=== PATIENT | female | born 1935 | race Caucasian/White ===

== ENCOUNTER 2016-06-14 18:55 | Inpatient (IN) | payer MEDICARE, OTHER ==
[~2016-06-14] VITALS: Ht 157.5 cm; Wt 75.0 kg
--- NOTE | ~2016-06-14 | CATH ---
Cardiac Diagnostic Report Demographics Patient Name ANA LAURA Wild Gender Female Date of 1935 Age 80 year(s) Patient Number [id number] Date of Study 06/15/2016 Visit Number [id number] Room Number [id number] [place] [id number] Ht 157.48 cm Wt 75 kg Referring Primary Physician Physician Fahad Martinez Secondary Physician Physician Albertina BRO Diagnostic [facility] Assisting Physician Physician Albertina BRO Interventional Physician Bottom Sprayer Physician Findings and Conclusions Diagnostic Findings and Conclusion Patient brought urgently to cardiac laboratory sample carrier post PCI earlier today. Patient developed chest pain 6-7 on pain scale, associated with sob, also with ST elevation in leads 1, aVL and rising troponin. Given her CKD and recent exposure to contrast on 2 seperate occasions (CT to rule out PE a day prior to admission and cardiac cath earlier today). Limited images obtained to evaluate Ramus stent. 2 vs CAD: Critical lesion in Ramus at origin and extendsinto the upper branch of Ramus, 95% stenosis, diffusely diseased. The RCA was not imaged again, but from cath done earlier today, it showed, critical ostial RCA lesion 99%, and it is a small non dominant RCA. Moderate stenosis in the proximal LAD about 50%. Diagnostic Recommendations Ramus stent is patent with no evidence of stent thrombosis. continue aggressive medical therapy. monitor closely for TRACY, hydrate as tolerated, repeat BMP in am. If pt does well overnight and creatinine is stable, will dc home in am. Procedure Description The patient was brought to the diagnostic cardiac catheterization-EP laboratory in the fasting, non-sedated state. Informed consent was obtained in the written and verbal form after the risks and benefits were explained. The patient had no further questions and agreed to proceed. The planned puncture-incision site(s) were shaved and prepped with ChloraPrep and draped in the usual sterile manner. Conscious sedation, supplemental oxygen, and pain control medications were delivered by a registered nurse under physician guidance. Surface ECG rhythm, blood pressure measurement, and pulse oximetry were monitored throughout the procedure. Arterial access. The access site was infiltrated with lidocaine. The vessel was entered with the Seldinger technique. A sheath was advanced into the vessel and used for catheter placement. Selective left coronary angiography. A catheter was advanced into the left coronary vessel ostium under Fluoroscopic guidance. Contrast was injected by hand. Images were obtained in multiple projections. Selective right coronary angiography. A catheter was advanced into the right coronary vessel ostium under fluoroscopic guidance. Contrast was injected by hand. Images were obtained in multiple projections. Arterial artery hemostasis was achieved. The patient was transferred to a regular nursing floor via cart accompanied by a nurse. The patient left the laboratory in stable condition. Diagnostic Cath Status: Emergency Procedure Procedure Type Diagnostic procedure:Angiography:, Coronary Angios Indications: Acute coronary syndrome. The procedure was explained in detail to the patient. Risks, complications and alternative treatments were reviewed. Written consent was obtained. Medications Reviewed with Patient prior to Procedure. Procedure Data Procedure Date Date: 06/15/2016Start: 05:58 PMEnd: 06:21 PM Entry Locations - Percutaneous access was performed through the Left Radial artery (Primary location). A 6 Fr sheath was inserted. Hemostasis was successfully obtained using Mechanical Compression. Devices Used - A6 Fr. EBU 3.5 Guide Catheterwas used for:Left coronary angiography. Contrast Material - Isovue 3705 ml Fluoroscopy Time: Diagnostic: 1:27 minutes. Total: 1:27 minutes. Fluoroscopy Dose: Diagnostic: 84 mGy. Total: 84 mGy. Estimated Blood Loss: 5 ml. Medical History Performed Procedures and Imaging Results - No ACC stress or imaging studies were performed. Allergies - No known allergies. Risk Factors The patient risk factors include:hypertension, insulin-treated diabetes mellitus, last creatinine: 1.2 mg/dl, creatinine clearance: 44.27 ml/min and dyslipidemia. Admission Data Admission Date: 06/15/2016 Admission Time: 06:30 AM Admit Source: Transfer acute care facility Insurance Payors: Medicare. Admission Medications + +------+------+ + + + + !Medication !Dosage!Times !Last !Last !Administered !Comments ! ! ! !Per !Delivery !Delivery ! ! ! ! ! !Day !Date !Time ! ! ! + +------+------+ + + + + !Aspirin ! ! ! ! !Yes ! ! !(any) ! ! ! ! ! ! ! + +------+------+ + + + + !Beta ! ! ! ! !Yes ! ! !Nathaniel ! ! ! ! ! ! ! !(any) ! ! ! ! ! ! ! + +------+------+ + + + + !Statin ! ! ! ! !Yes ! ! !(any) ! ! ! ! ! ! ! + +------+------+ + + + + Clinical Evaluation Leading to Procedure - The patient's CAD presentation was assessed as: Non-STEMI.The symptom onset was first noted on 06/14/2016 02:00 AM - The patient's anginal syndrome during the past two weeks was assessed as: Class IV according to the [place] Cardiovascular Society Classification System (CCS). Anti-anginal medications were prescribed during the past two weeks. The medication is: Beta Blockers. Hemodynamics Condition: Rest O2 Consumption: Estimated: 154.33Heart Rate: 64 bpm Pressures (mmHg) +-----+ + !Site !Pressure ! +-----+ + !AO !136/61 (90) ! +-----+ + Shunts Oxygen Values O2 Capacity 179.52 O2 Consumption 154.33 Discharge Data Discharge Date: 06/16/2016 Hospital Status: Inpatient Signatures dtt: ALBERTINA MARTINEZ dtd: 06/15/16 1758 Physician Self Edit
--- NOTE | ~2016-06-14 | HP ---
PATIENT'S NAME: CHRISTOPH DU [facility] AGE: 80 Y [address] ROOM: [address] [place], [place] [address] [facility] ADMIT DATE: 06/14/2016 History & Physical DISCHARGE DATE: FAMILY PHYSICIAN: PHYSICIAN, UNKNOWN ATTENDING PHYSICIAN: Stanley TAVARES DATE OF SERVICE: CHIEF COMPLAINT: Non STEMI. HISTORY OF PRESENTING ILLNESS: This is an 80-year-old white female with previous history of pericardial effusion a few years ago following hip fracture, was transferred to [facility] from [place] with apparent non ST-elevation CA. She was awoken from sleep at 2:00 a.m. this morning with epigastric discomfort. Initially, she felt that it was "just gas." She describes a deep aching pain which radiated through to her back and then up into her shoulders. It is fairly persistent over the course of the morning. Ultimately, she elected to go to the emergency room in [place] for evaluation. On her arrival there, she actually had a near syncopal event while entering the facility. She never actually fell or lost consciousness. Her initial evaluation was fairly unremarkable. A troponin at her arrival was 0.06. She did undergo an extensive evaluation including CT angiography looking for pulmonary embolism, because she had an elevated D-dimer. This was negative; however, she did redevelop chest pain while she was in the CT scanner. A followup troponin was elevated at 5.1. Cardiology was consulted by telephone, and it was requested that she be transferred here for definitive evaluation and management. A cardiac catheterization had tentatively been planned for tomorrow morning. On her arrival to the floor, she reports feeling "good." Her chest pain has gone. She denies headache, dizziness, or lightheadedness. No palpitations, although she does occasionally get some "fluttering feelings." She never lost consciousness before. She denies significant shortness of breath, no orthopnea. She sleeps fairly well. Appetite has been good. Denies any difficulties with chewing or swallowing. No xochilt abdominal pain. She has been stooling and voiding normally. Denies noticing any blood in her stools or black tarry stools. No urinary complaints. No numbness, tingling, or weakness in her extremities or any other associated physical or constitutional complaints. PAST MEDICAL HISTORY: ALLERGIES: PATIENT'S NAME: ASHLYN DU Torri [facility] AGE: 80 Y [address] ROOM: [facility] [place], [place] [address] LOCATION: [facility] ADMIT DATE: 06/14/2016 History & Physical DISCHARGE DATE: FAMILY PHYSICIAN: PHYSICIAN, UNKNOWN ATTENDING PHYSICIAN: Stanley TAVARES NO KNOWN DRUG ALLERGIES. ILLNESSES: 1. Lumbar spinal stenosis, status post back surgery in 2013. 2. Hip fracture, status post ORIF. 3. Osteoarthritis, generalized. 4. Diabetes mellitus type 2, diet controlled. CURRENT MEDICATIONS: 1. Aspirin 325 mg p.o. daily. 2. Ibuprofen p.r.n. FAMILY HISTORY: Significant for heart disease in her mother who of an CA at 82. Father had "black lung." She had an older sister with heart disease as well. SOCIAL HISTORY: She is and lives in [place], [place]. She is a lifelong nonsmoker. There is no significant history of alcohol use. REVIEW OF SYSTEMS: As per HPI. All other organ systems reviewed and are negative. OBJECTIVE: VITAL SIGNS: Temperature 98.3, pulse 84, respirations 16, blood pressure 159/69. GENERAL: She is very pleasant, cooperative, lying in bed, in no acute distress. SKIN: Supple, pink, warm, and dry. No obvious rashes. HEENT: Otherwise, normocephalic. Sclerae nonicteric. Pupils are equal, round, and reactive to light and accommodation. Extraocular movements appear intact. Nasal turbinates normal. Oropharynx clear. Mucous membranes are pink and moist. NECK: Supple. No masses or adenopathy. No thyromegaly. No JVD. No carotid bruits are heard. CHEST: Chest wall is symmetrical. HEART: Regular with occasional extrasystoles. LUNGS: Diminished at the bases. No crackles or wheezes are heard. ABDOMEN: Soft, protuberant, nontender. Bowel sounds are present. No mass or hepatosplenomegaly. and RECTAL: Not done. EXTREMITIES: Display no significant clubbing, cyanosis, or edema. NEUROLOGIC: No focal deficits. LABORATORY AND X-RAY DATA: PATIENT'S NAME: CHRISTOPH DU [facility] AGE: 80 Y [address] ROOM: [id number] [place], [place] [address] [facility] ADMIT DATE: 06/14/2016 History & Physical DISCHARGE DATE: FAMILY PHYSICIAN: PHYSICIAN, UNKNOWN ATTENDING PHYSICIAN: Stanley TAVARES EKG shows PVCs. Cardiac enzymes revealed a troponin of 5.17 at 1738 hours, CK- MB 2.6, CPK is 76. Chemistries reveal BUN and creatinine of 35 and 1.4 respectively, sodium and potassium 141 and 3.8, chloride and CO2 are 107 and 20, glucose 159. AST and ALT 20 and 19 respectively. Bilirubin is 0.3. CT of the chest is negative for PE, shows no active cardiopulmonary process. ASSESSMENT/PLAN: 1. Bbw-RZ-wghwavslb myocardial infarction. We will admit for observation. Dr. Mirza has been consulted, and we will await her evaluation recommendations. The patient has been placed on heparin drip and is hemodynamically stable. We will tentatively plan for cardiac catheterization in the morning. We will also get echo. We will follow on the ACS pathway. We will enhance her medical therapy with statin therapy and beta-kelle therapy as well as FLAQUITA inhibitor therapy. 2. Acute kidney injury, prerenal. We will hydrate carefully tonight and repeat in the morning. She did receive significant contrast infusion with the angiogram. 3. Essential hypertension. Controlled. We will monitor the trend on beta- kelle therapy. 4. Diabetes mellitus type 2, diet controlled. It does not sound that she has had much followup with this. We will get hemoglobin A1c and follow up on that when the results are known. In the meantime, we will manage with Accu-Cheks and sliding scale insulin. 5. Lumbar spinal stenosis. Clinically stable and asymptomatic. 6. Deep venous thrombosis prophylaxis. She is going to be fully heparinized. MD FLOWER VELASQUEZ/luisa /[id number] D: [id number] T: 154 HISTORY & PHYSICAL
--- NOTE | ~2016-06-14 | DS ---
PATIENT'S NAME: CHRISTOPH DU [facility] AGE: 80 Y [address] ROOM: [address] [place], [place] [address] LOCATION: [facility] ADMIT DATE: 06/15/2016 Discharge Summary DISCHARGE DATE: 06/16/2016 FAMILY PHYSICIAN: Physician, Unknown ATTENDING PHYSICIAN: Stanley TAVARES PRINCIPAL DIAGNOSIS: Non-ST elevation myocardial infarction. SECONDARY DIAGNOSIS: 1. Type 2 diabetes mellitus. 2. Acute kidney injury. 3. High TSH level. HOSPITAL COURSE: An 80-year-old lady with no significant past medical history was admitted with chest pain. On evaluation, she was found to be in NSTEMI given high troponin levels, and she was transferred here to the [facility]. She was taken emergently to the skill labor where a drug-eluting stent was put to the ramus. She was started on dual antiplatelets with aspirin as well as Brilinta. She was also started on beta kelle as well as statin. Her echocardiography did not show any wall motion abnormality. Ejection fraction was 60% with grade 1 diastolic dysfunction. She on the other hospital received a CAT scan with the IV contrast to rule out pulmonary embolism, which was negative, and then she received contrast during cardiac catheterization. Post procedurally the next day, she developed ALEX with creatinine rising up to 1.3, which resolved on the day of the discharge with IV fluids, and on discharge, it was 1.2. She will be following up with Dr. Mirza in 2 weeks. ACTIVITY: As tolerated. MEDS: Please see MAR DIET: Diabetic diet. HEMODYNAMICS: On discharge were stable. MD RHINA ESPINOZA/luisa /[id number] d: 06/17/16 0256 t: 06/26/16 1949, DISCHARGE SUMMARY
--- NOTE | ~2016-06-14 | CON ---
PATIENT'S NAME: CHRISTOPH DU [facility] AGE: 80 Y [address] ROOM: [address] [place], [place] [address] LOCATION: [facility]U ADMIT DATE: 06/15/2016 Consultation DISCHARGE DATE: FAMILY PHYSICIAN: PHYSICIAN, UNKNOWN ATTENDING PHYSICIAN: Stanley TAVARES DATE OF CONSULTATION: 06/15/2016 REFERRING PHYSICIAN: LI MARTINEZ MD REASON FOR CONSULTATION: Non-STEMI. HISTORY OF PRESENTING ILLNESS: The patient is a very pleasant, 80-year-old female, who really does not have any significant past medical history, went in to the emergency room yesterday at [place] for complaints of chest pain. She had it last night on the night before admission in [place] on 06/13/2016 with chest discomfort and it woke her up from her sleep and she did take some Paolo-Aid last night just before going to bed. She was admitted and the plan was to admit her there and get serial isoenzymes; however, the 1st set of troponin was about 5 and she was transferred here for cardiology consultation and possible catheterization. She has history of pericardial effusion a few years ago, that was small. She did not require any pericardiocentesis. She reports she was awoken from her sleep on 06/14 early a.m. at around two o'clock, it was mainly epigastric and she thought it was just heartburn, but she also had a deep aching pain that radiated up to her back and into her shoulder as well. It was persistent throughout the course of the morning and ultimately she decided to go to the emergency room. When she went there, she almost passed out while entering the facility, but she never lost her consciousness or sustain any injuries. Initial troponin on arrival was 0.06. Her D-dimer was unfortunately elevated. She underwent a CT scan to ensure does not have a PE and that was negative for PE. She did have more chest pain while she was on the CT scan and repeat troponin was 5.1, so she was transferred here and last night on the heparin drip and her medications were optimized. She did not have any further episodes of chest discomfort. Since transfer to [facility]. She does not have any bleeding issues, history of stroke, diabetes, contrast allergies. She is otherwise quite healthy and does not have any significant symptoms. She has chronic dyspnea on exertion. No belly pain. No nausea, vomiting, or blood loss in her urine or stools. REVIEW OF SYSTEMS: 10-point review of systems discussed with the patient. Pertinent positives PATIENT'S NAME: CHRISTOPH DU [facility] AGE: 80 Y [address] ROOM: [place] [address] LOCATION: [facility] ADMIT DATE: 06/15/2016 Consultation DISCHARGE DATE: FAMILY PHYSICIAN: PHYSICIAN, UNKNOWN ATTENDING PHYSICIAN: Stanley TAVARES and negatives mentioned in the history of presenting illness. PAST MEDICAL HISTORY: None. ALLERGIES: NO KNOWN DRUG ALLERGIES. HOME MEDICATIONS: She is on aspirin 325 p.r.n. headache and ibuprofen 400 mg q.4-6 hours for headaches. PAST MEDICAL HISTORY: Lumbar spinal stenosis status post back surgery 2013, hip fracture status post ORIF, osteoarthritis, hyperglycemia that is diet controlled. FAMILY HISTORY: Significant for heart disease; however no premature heart disease or sudden cardiac . SOCIAL HISTORY: She is , lives in [place]. She has never smoked in her life. No illicit drug abuse or alcohol abuse. PHYSICAL EXAMINATION: VITAL SIGNS: Blood pressure 140/70, afebrile, pulse is in the 70s, respirations 14, O2 sats greater than 90% on room air. GENERAL: She is very pleasant, alert and oriented, not in any apparent distress. Answers all my questions appropriately. SKIN: Warm and dry. HEENT: Normocephalic. Neck is supple. Mucous membranes moist. Eyes, sclerae are white. No xanthelasmas. CHEST: Clear to auscultation bilaterally. No wheezing or crackles. ABDOMEN: Soft, obese. Bowel sounds positive. EXTREMITIES: No significant lower extremity edema. VASCULAR: Radial pulse feeble. A 2+ femoral pulse. NEURO: No gross deficits. Able to move all extremities against gravity. No speech deficits. LAB AND X-RAY DATA: EKG normal sinus rhythm, mild ST depressions in leads V1 and V2. Cardiac enzymes, elevated troponin of 5.17 at the outside hospital and the troponins have been trending down. Actually, they were initially trending up even higher to 19.7 here and then this morning 12.5. Her CPK is also elevated at 351 today, it was 489 yesterday and a CK-MB from 60, it came down to 41. A1c PATIENT'S NAME: CHRISTOPH DU [facility] AGE: 80 Y [address] ROOM: [address] [place], [place] [address] LOCATION: [facility]PCU ADMIT DATE: 06/15/2016 Consultation DISCHARGE DATE: FAMILY PHYSICIAN: PHYSICIAN, UNKNOWN ATTENDING PHYSICIAN: Elmo TAVARESwe is 6.5. TSH is also elevated at 9.2. WBC 9.7, H and H 13.2 and 39.8, and platelets are 211. Echo is pending. IMPRESSION AND PLAN: 1. Non ST-elevation myocardial infarction with significantly elevated cardiac biomarkers including CPK, CK-MB, as well as troponin, peak trop 20. 2. Acute kidney injury, likely prerenal. That did improve with IV hydration. However, she did receive contrast media prior to transfer and she will need more further cardiac cath. 3. Essential hypertension, well controlled on beta blockers. 4. Diabetes mellitus type 2. A1c 6.5. She is diet controlled and not on any medications. 5. Hypothyroidism. TSH is elevated. We will defer to PCP for initiation of therapy for that. Informed consent obtained for cath because risk of TRACY, including need for dialysis, given her acute renal insufficiency, recent contrast load, and advanced age; however, we will hydrate her aggressively and the creatinine is better this morning. We will use the least amount of contrast necessary. She is a good candidate for DAPT. All her questions regarding cath were answered. Risks of heart attack, , stroke, emergency bypass, losing a limb, blood clot, TRACY, and worsening renal function including need for dialysis discussed with her. The risk of bleeding, bruising and infection also discussed and she are agreeable to proceed with plan, given the presentation and MS. The benefits are greater than the risks at this point, and we will go ahead and proceed with cardiac cath. LI MARTINEZ MD AT/farhanal /[id number] d: 06/15/16 1449 t: 06/20/16 1137, CONSULTATION REPORT
--- NOTE | ~2016-06-14 | CATH ---
Cardiac Diagnostic + PCI Report Demographics Patient Name ANA LAURA Wild Gender Female Date of 1935 Age 80 year(s) Patient Number [id number] Date of Study 06/15/2016 Visit Number [id number] Room Number G6318 [place] [id number] Ht 157.48 cm Wt 75 kg Referring Jamir Bright Primary Physician Physician Performing [facility] Secondary Physician Physician Albertina BRO Diagnostic [facility] Assisting Physician Physician Albertina BRO Interventional [facility] Physician Signing Agent Physician Albertina BRO Findings and Conclusions Diagnostic Findings and Conclusion 2 vs CAD: Critical lesion in Ramus at origin and extendsinto the upper branch of Ramus, 95% stenosis, diffusely diseased. Critical ostial RCA lesion 99%, it is a non dominant RCA. Moderate stenosis in the proximal LAD about 50%. Diagnostic Recommendations PCI of Ramus into the branch of Ramus, this appears to be the culprit based on TWI in leads I and aVL. Trop peaked at 19. Interventional Findings and Conclusion Successful PCI of both the proximal Ramus and upper branch of Ramus using a 2.5 X 24mm Drug Eluting stent. Interventional Recommendations DAPT X 1 year Continue regular medications. Patient will be observed overnight. Continue current medications. Hydration and followup creatinine. Patient has been instructed to not lift anything more than 5 pounds for 1 week. Aggressive risk factor management. Aggressive medical therapy for coronary artery disease. Recommend aggressive risk factor modification. Statin. ASA. Beta Nathaniel. Brad Inhibitor if creatinine stable. Optimization of medical therapy as an outpatient. Cardiac diet and cardiac rehab. If patient has angina on guideline directed medical therapy, may need PCI of the non dominant RCA or FFR of LAD depending on the clinical situation. Procedure Description The patient was brought to the diagnostic cardiac catheterization-EP laboratory in the fasting, non-sedated state. Informed consent was obtained in the written and verbal form after the risks and benefits were explained. The patient had no further questions and agreed to proceed. The planned puncture-incision site(s) were shaved and prepped with ChloraPrep and draped in the usual sterile manner. Conscious sedation, supplemental oxygen, and pain control medications were delivered by a registered nurse under physician guidance. Surface ECG rhythm, blood pressure measurement, and pulse oximetry were monitored throughout the procedure. Arterial access. The access site was infiltrated with lidocaine. The vessel was entered with the Seldinger technique. A sheath was advanced into the vessel and used for catheter placement. Selective left coronary angiography. A catheter was advanced into the left coronary vessel ostium under Fluoroscopic guidance. Contrast was injected by hand. Images were obtained in multiple projections. Left heart catheterization. A catheter was advanced across the aortic valve to the left ventricle under fluoroscopic guidance. Resting hemodynamics were obtained. Selective right coronary angiography. A catheter was advanced into the right coronary vessel ostium under fluoroscopic guidance. Contrast was injected by hand. Images were obtained in multiple projections. Angioplasty and Stent Placement: A guiding catheter was used to intubate the vessel. A 0.14 wire was then used to cross the lesion. A balloon catheter was placed across the lesion and inflated. The balloon catheter was then removed. A Drug Eluting Stent was placed and inflated. Post placement angiograms were performed. Arterial artery hemostasis was achieved. The patient was transferred to a regular nursing floor via cart accompanied by a nurse. The patient left the laboratory in stable condition. Diagnostic Cath Status: Urgent Interventional Cath Status: Urgent Procedure Procedure Type Diagnostic procedure:Angiography:, Coronary Angios /[facility] PCI procedure:Drug Eluting Coronary Stent:, Ramus Indications: NSTEMI. The procedure was explained in detail to the patient. Risks, complications and alternative treatments were reviewed. Written consent was obtained. Medications Reviewed with Patient prior to Procedure. Angiographic Findings Dominance: Right Cardiac Arteries and Lesion Findings LMCA: Normal (0% Stenosis). LAD: Lesion on Prox LAD: Mid subsection.50% stenosis . LCx: Mild luminal irregularities RCA: Small, non-dominant Lesion on Prox RCA: Ostial.90% stenosis . Lesion on Prox RCA: 99% stenosis . Ramus: Lesion on Ramus: Proximal subsection.90% stenosis 24 mm length reduced to 0%. Pre procedure SKY II flow was noted. Post Procedure SKY III flow was present. The guidewire cross was successful.The lesion was diagnosed as a high risk lesion.Culprit lesion. Devices used - Runthrough NS .014 x 180. Number of passes: 1. - Promus Premier 2.5 x 24 Stent. 2 inflation(s) to a max pressure of: 11 berto. Lesion on Lat ramus: Proximal subsection.95% stenosis 24 mm length reduced to 0%. Pre procedure SKY II flow was noted. Post Procedure SKY III flow was present. The guidewire cross was successful.The lesion was diagnosed as a high risk lesion.Culprit lesion. Devices used - Emerge Balloon 2.0 x 30. 1 inflation(s) to a max pressure of: 6 berto. Coronary Tree Procedure Data Procedure Date Date: 06/15/2016Start: 07:58 AMEnd: 08:49 AM Entry Locations - Retrograde Percutaneous access was performed through the Right Femoral artery (Primary location). A 6 Fr sheath was inserted. Hemostasis was successfully obtained using Angio-Seal STS PLUS ([facility]. [facility]). Closure Comments: Deployed by Dr. Mirza. Procedure Medications Order and Administration + + + + + !Time !Medication !Dosage !Route ! + + + + + !06/15/2016 07:55 !Fentanyl !25 mcg !I.V. ! !AM ! ! ! ! + + + + + !06/15/2016 07:57 !Versed !0.5 mg !I.V. ! !AM ! ! ! ! + + + + + !06/15/2016 08:00 !Fentanyl !25 mcg !I.V. ! !AM ! ! ! ! + + + + + !06/15/2016 08:16 !Angiomax (Bivalirudin) !55 mg !I.V. bolus ! !AM !(ACC_5) ! ! ! + + + + + !06/15/2016 08:18 !Angiomax (Bivalirudin) !1.75 mg/kg/hr!I.V. drip ! !AM !(ACC_5) ! ! ! + + + + + 06/15/2016 08:18 !Versed !0.5 mg !I.V. ! !AM ! ! ! ! + + + + + !06/15/2016 08:47 !Brilinta (Ticagrelor) !180 mg !P.O. ! !AM !(ACC_20) ! ! ! + + + + + Devices Used - A5 Fr. BS JL 4 Diag. Catheterwas used for:Left coronary angiography. - A6 Fr. BS JR 4 Diag. Catheterwas used for:LV Pressures. - A5 Fr. JJ 3DRC Diag. Catheterwas used for:Right coronary angiography. - A6 Fr. EBU 3.5 Guide Catheterwas used for:Ramus Intervention. - A6 Fr. BS JL 3.5 Diag. Catheterwas used for:Was not used. Contrast Material - Isovue 14319 ml Fluoroscopy Time: Diagnostic: 7:42 minutes. Total: 7:42 minutes. Fluoroscopy Dose: Diagnostic: 838 mGy. Total: 838 mGy. Estimated Blood Loss: 10 ml. Additional [facility] PCI Information PCI Indication:PCI for high risk Non-STEMI or unstable angina. Medical History Performed Procedures and Imaging Results - No [facility] stress or imaging studies were performed. Allergies - No known allergies. Risk Factors The patient risk factors include:hypertension, insulin-treated diabetes mellitus, last creatinine: 1.2 mg/dl, creatinine clearance: 44.27 ml/min and dyslipidemia. Admission Data Admission Date: 06/15/2016 Admission Time: 06:30 AM Admit Source: [facility] care facility Insurance Payors: Medicare. Admission Medications + +------+------+ + + + + !Medication !Dosage!Times !Last !Last !Administered !Comments ! ! ! !Per !Delivery !Delivery ! ! ! ! ! !Day !Date !Time ! ! ! + +------+------+ + + + + !Aspirin ! ! ! ! !Yes ! ! !(any) ! ! ! ! ! ! ! + +------+------+ + + + + !Beta ! ! ! ! !Yes ! ! !Nathaniel ! ! ! ! ! ! ! !(any) ! ! ! ! ! ! ! + +------+------+ + + + + !Statin ! ! ! ! !Yes ! ! !(any) ! ! ! ! ! ! ! + +------+------+ + + + + Clinical Evaluation Leading to Procedure - The patient's CAD presentation was assessed as: Non-STEMI.The symptom onset was first noted on 06/14/2016 02:00 AM - The patient's anginal syndrome during the past two weeks was assessed as: Class IV according to the [place] Cardiovascular Society Classification System (CCS). Anti-anginal medications were prescribed during the past two weeks. The medication is: Beta Blockers. Hemodynamics Condition: Rest O2 Consumption: Estimated: 156.39Heart Rate: 67 bpm Pressures (mmHg) +-----+ + !Site !Pressure ! +-----+ + !AO !116/51 (77) ! +-----+ + !LV !121/5 ,15 ! +-----+ + !LV !118/5 ,14 ! +-----+ + !AO !125/55 (83) ! +-----+ + !LV !118/5 ,14 ! +-----+ + !AO !71/42 (50) ! +-----+ + Valve Gradients and Areas + +---------+---------+---------+ +---------+ + !Valve !Peak !Mean !Area !Index !Flow !Source ! + +---------+---------+---------+ +---------+ + !Aortic !0 !0 ! ! ! ! ! + +---------+---------+---------+ +---------+ + !Aortic !0 !0 ! ! ! ! ! + +---------+---------+---------+ +---------+ + Shunts Oxygen Values O2 Capacity 179.52 O2 Consumption 156.39 Signatures dtt: ALBERTINA MARTINEZ dtd: 06/15/16 0758 Physician Self Edit
--- NOTE | ~2016-06-14 | ECHO ---
Transthoracic Echocardiography Report (TTE) Demographics Patient Name CHRISTOPH DU Date of Study 06/15/2016 R Patient Number [id number] Visit Number [id number] Date of 1935 Room Number G6318 Gender Female Number Age 80 year(s) Referring Flight Test Mechanic Hari RVT, RDCS Physician [place] Physician Interpreting Fidel nEg MD Executive Officer Special Warfare Team Physician Supervising Ordering Fidel Eng MD, MD/MLP Physician Nurse Stress Geographic Information Systems Director Conclusions Contractility Score Summary Normal Left Ventricular contractility was noted. Summary Normal LV/RV size and systolic function. The estimated left ventricular ejection fraction is 60-65%. Mild concentric left ventricular hypertrophy. Diastolic assessment reveals Grade I diastolic dysfunction. No significant valvular abnormalities. Procedure Type of Study TTE procedure:2D Echocardiogram, M-Mode, Doppler , Color Doppler. Procedure Date Date: 06/15/2016 Start: 01:23 PM Study Location: Inpatient Portable Technical Quality: Adequate visualization Additional Indications:non stemi Appropriate Use Criteria: 9 Patient Status: Routine HR: 96 bpm BP: 138/83 mmHg Allergies - No known allergies. M-Mode/2D Measurements LV Diastolic Dimension: 4.45 cm LV Systolic Dimension: 3.29 cm LV Septum Diastolic: 1.21 cm LV PW Diastolic: 1.26 cm AO Root Dimension: 2.8 cm Cardiac Output: 10.2 l/min AV Cusp Separation: 1.5 cm RV Diastolic Dimension: 2.11 cm LA volume: 35 ml LVOT: 2.1 cm RV Base: 2.38 cm LVOT VTI: 30.7 cm RV Mid: 1.7 cm LV Stroke volume: 106.28 ml TAPSE: 1.77 cm Doppler Measurements AV Peak Velocity: 1.25 m/s MV Peak E-Wave: 0.92 m/s AV Peak Gradient: 6.25 mmHg MV Peak A-Wave: 1.34 m/s AV Mean Gradient: 4 mmHg MV E/A Ratio: 0.69 LVOT Peak Velocity: 1.13 m/s MV P1/2t: 89 msec TR Gradient:19.71 mmHg PV Peak Velocity: 0.94 m/s Estimated RAP:10 mmHg PV Peak Gradient: 3.53 mmHg Estimated RVSP: 30 mmHg Estimated PASP: 29.71 mmHg E' Septal Velocity: 0.05 m/s A' Septal Velocity: 0.09 m/s E' Lateral Velocity: 0.05 m/s A' Lateral Velocity: 0.11 m/s Findings Left Ventricle Mild concentric left ventricular hypertrophy. Diastolic assessment reveals Grade I diastolic dysfunction. Right Ventricle Normal right ventricle structure and function. Left Atrium Normal left atrial size. Right Atrium Normal right atrial size. Mitral Valve Mild mitral annular calcification. Trivial mitral regurgitation by color Doppler. Aortic Valve The aortic valve is mildly sclerotic. Tricuspid Valve Trivial tricuspid regurgitation by color Doppler. Pulmonic Valve Normal pulmonic valve structure and function. Pericardial Effusion No evidence of pericardial effusion. Pleural Effusion No evidence of pleural effusion. Contractility Score LV regional wall motion:(0-Non visualized 1-Normal 2-Hypokinesis 3-Akinesis 4-Dyskinesis 5-Aneurysm) Signature dtt: LI MARTINEZ dtd: 06/15/16 1323 Physician Self Edit
[2016-06-14] MEDS ORDERED: ADVIL200 MG PO (20:21)
[2016-06-14] MEDS ORDERED: ASPIRIN EC81 MG PO (20:22)
[2016-06-14 21:58] LABS: BASOPHIL % 0.4 %; EOSINOPHIL # 0.1 K/uL (0.0-0.5); EOSINOPHIL % 0.6 %; HEMATOCRIT 39.8 % (30.0-46.0); HEMOGLOBIN 13.2 g/dL (10.0-15.0); IMMATURE GRANULOCYTE # 0.1 K/uL (0.0-0.3); IMMATURE GRANULOCYTE % 0.5 %; MCH 28.3 pg (27.0-34.0); MCHC 33.2 gm/dL (32.0-36.5); MCV 85.2 fl (83.0-98.0); MONOCYTE # 0.5 K/uL (0.0-1.0); MONOCYTE % 5.3 %; MPV 10.3 fl (9.4-12.4); NEUTROPHIL % 72.2 %; NRBC % 0 /100WBC (0-0.00); PLATELET COUNT 211 K/uL (150-450); RDW-CV 14.3 % (11.9-14.6); WBC 9.7 K/uL (4.0-11.0)
[2016-06-14 21:59] LABS: RBC 4.67 M/uL (3.00-5.00)
[2016-06-14 22:10] LABS: PTT 71 SECONDS (25-32)
[2016-06-14 22:19] LABS: ALBUMIN 3.1 gm/dL (3.5-5.0); ANION GAP 13.1 (10.0-19.0); CALCIUM 8.5 mg/dL (8.5-10.5); CREATININE 1.1 mg/dL (0.5-1.1); MAGNESIUM 1.9 mg/dL (1.3-2.6); POTASSIUM 4.1 mMol/L (3.7-5.1); TOTAL PROTEIN 7.4 g/dL (6.0-8.4)
[2016-06-14 22:21] LABS: TOTAL BILIRUBIN 0.2 mg/dL (0.0-1.5)
--- NOTE | 2016-06-15 01:26 | NUR ---
PATIENT ARRIVED TO PCU AT 2014 VIA AMBULANCE FROM [facility]. UPON ARRIVAL PATIENT HAS HAD NO CHEST PAIN. HEPARIN DRIP AT 1200 UNITS TO CONTINUE. NPO AFTER MIDNIGHT FOR HEART CATH IN AM WITH . NS ALSO STARTED AT 100ML/HR. UP TO THE BATHROOM WITH 1 ASSIST.
--- NOTE | 2016-06-15 04:39 | NUR ---
SIGNIFICANT EVENT: A/O X 3. HAS HAD NO C/O CHEST PAIN SINCE BEING ADMITTED. HEPARIN DRIP RUNNING AT 1100 UNITS/HR WITH NEXT PTTHP TO BE DRAWN AT 0645. PLAN FOR A HEART CATH IN AM WITH . PERMITS HAVE BEEN PRINTED AND PLACED ON CHAT BUT NO RISK AND BENEFITS HAVE BEEN DONE.
[2016-06-15 05:01] LABS: ALBUMIN 2.5 gm/dL (3.5-5.0); ANION GAP 12.3 (10.0-19.0); CALCIUM 7.9 mg/dL (8.5-10.5); CREATININE 1.2 mg/dL (0.5-1.1); PHOSPHORUS 3.9 mg/dL (2.5-4.9); POTASSIUM 4.3 mMol/L (3.7-5.1)
--- NOTE | 2016-06-15 16:22 | NUR ---
Significant Event: HAD A HEART CATH THIS AM, OFF FLOOR FROM [id number]; ATTEMPTED RT)RADIAL ACCESS BUT FAILED-SITE WITH GAUZE AND WRAPPED WITH COBAN REMAINS SOFT AND C/D/I. RT)GROIN SITE THEN ACCESSED AND ANGIOSEALED; REMAINS SOFT, WITH A SMALL AMOUNT OF BLOODY DRAINAGE PRESENT, CSM WNL; STENT TO THE RAMUS. DENIES PAIN. VOIDS WITH ADEQUATE UOP. DENIES CP. ENZYMES ARE TRENDING DOWN. Follow up: CONTINUE PLAN OF CARE.
--- NOTE | 2016-06-15 16:44 | NUR ---
Introduced self and CM role to Rosita and her family that was at bedside. Rosita tells me that she lives at home alone, but has a granddaughter that lives there from time to time and is able to help her out if needed. Helen tells me she does all of her own medications at home and plans to continue to do so. She also states she has a FWW to use if she needs it, but hadn't previously been using it. Her family is here and will be able to take her home when she is medically stable. No other questions, needs or concerns. CM to continue to follow and assist. Plan home.
[2016-06-16 04:12] LABS: ALBUMIN 2.7 gm/dL (3.5-5.0); ANION GAP 12.9 (10.0-19.0); CALCIUM 7.6 mg/dL (8.5-10.5); CREATININE 1.3 mg/dL (0.5-1.1); POTASSIUM 3.9 mMol/L (3.7-5.1); TOTAL PROTEIN 6.3 g/dL (6.0-8.4)
[2016-06-16 04:13] LABS: TOTAL BILIRUBIN 0.3 mg/dL (0.0-1.5)
--- NOTE | 2016-06-16 07:26 | NUR ---
Significant Event: Patient alert and oriented x3. Vital signs stable. Returned from ship laborer at 1830. No interventions needed. Nitro paste applied for [address] Mirza orders. Off at 0130. R-Band off per protocal. Left radial site C/D/I. 2+ pulses bilaterally. Groin site C/D/I. No complaints of chest pain. Tylenol given x2 for headache and neck/back pain with relief. SBP 90s-120s. All other vital signs stable. On RA. Patient up with stand-by assist to bathroom. Calm and cooperative with all cares. Follow up: Home today?
[2016-06-16 13:07] LABS: ALBUMIN 2.7 gm/dL (3.5-5.0); ANION GAP 12.9 (10.0-19.0); CREATININE 1.2 mg/dL (0.5-1.1); PHOSPHORUS 2.7 mg/dL (2.5-4.9); POTASSIUM 3.9 mMol/L (3.7-5.1)
[2016-06-16] MEDS ORDERED: LIPITOR40 MG PO (15:14)
[2016-06-16] MEDS ORDERED: BRILINTA90 MG PO (15:15)
[2016-06-16] MEDS ORDERED: LOPRESSOR25 MG PO (15:15)
[2016-06-16] MEDS ORDERED: TYLENOL325 MG PO (15:17)
[2016-06-16] MEDS ORDERED: NITROSTAT0.4 MG SL (16:24)
--- NOTE | 2016-06-16 17:23 | NUR ---
I HAVE READ AND AGREE WITH CHARTING DONE BY Gus HAQ STUDENT NURSE.
== END 2016-06-16 16:50 | disposition disaster alternative care site (69) | DRG 247 ==
LOC: GPCU 20:11
PROVIDERS: Family Medicine; Internal Medicine Interventional Cardiology; ADMIT Internal Medicine
PROC: 4A023N7 Measurement of Cardiac Sampling and Pressure, Left Heart, Percutaneous Approach (ICD-10-PCS; principal; 2016-06-15)
PROC: 027034Z Dilation of Coronary Artery, One Artery with Drug-eluting Intraluminal Device, Percutaneous Approach (ICD-10-PCS; 2016-06-15)
PROC: B211YZZ Fluoroscopy of Multiple Coronary Arteries using Other Contrast (ICD-10-PCS; 2016-06-15)
DX: I21.4 Non-ST elevation (NSTEMI) myocardial infarction (principal); N17.9 Acute kidney failure, unspecified; M48.06 Spinal stenosis, lumbar region; Z87.81 Personal history of (healed) traumatic fracture; I10 Essential (primary) hypertension; E11.9 Type 2 diabetes mellitus without complications
CPT/HCPCS: C1725; C1760; C1769; C1874; C1887; C1894; C9600; G0378; J0583; J1644; J2250; J2370; J3010; J7030; J7040; J7060

== ENCOUNTER → 2016-07-06 | Outpatient (CLI) | payer MEDICARE, OTHER ==
[~2016-07-06] MED LIST: ADVIL200 MG PO; ASPIRIN EC81 MG PO; BRILINTA90 MG PO; LIPITOR40 MG PO; LOPRESSOR25 MG PO; NITROSTAT0.4 MG SL; TYLENOL325 MG PO
[2016-07-06 15:12] LABS: BASOPHIL % 0.4 %; EOSINOPHIL # 0.1 K/uL (0.0-0.5); EOSINOPHIL % 1.3 %; HEMATOCRIT 37.3 % (30.0-46.0); HEMOGLOBIN 12.2 g/dL (10.0-15.0); IMMATURE GRANULOCYTE # 0.1 K/uL (0.0-0.3); IMMATURE GRANULOCYTE % 0.5 %; LYMPHOCYTE # 1.8 K/uL (0.8-4.0); LYMPHOCYTE % 19.7 %; MCH 28.3 pg (27.0-34.0); MCHC 32.7 gm/dL (32.0-36.5); MCV 86.5 fl (83.0-98.0); MONOCYTE # 0.7 K/uL (0.0-1.0); MONOCYTE % 7.2 %; MPV 10.3 fl (9.4-12.4); NEUTROPHIL # (ANC) 6.6 K/uL (1.8-7.8); NEUTROPHIL % 70.9 %; NRBC % 0 /100WBC (0-0.00); RBC 4.31 M/uL (3.00-5.00); RDW-CV 14.5 % (11.9-14.6); WBC 9.3 K/uL (4.0-11.0)
[2016-07-06 15:14] LABS: PLATELET COUNT 301 K/uL (150-450)
[2016-07-06 15:27] LABS: ALBUMIN 2.8 gm/dL (3.5-5.0); ANION GAP 12.9 (10.0-19.0); CALCIUM 8.4 mg/dL (8.5-10.5); CREATININE 1.3 mg/dL (0.5-1.1); POTASSIUM 3.9 mMol/L (3.7-5.1); TOTAL PROTEIN 7.8 g/dL (6.0-8.4)
[2016-07-06 15:28] LABS: TOTAL BILIRUBIN 0.7 mg/dL (0.0-1.5)
[2016-07-06 16:11] LABS: CPK 48 IU/L (21-215)
== END ==
LOC: LNHI 15:05
PROVIDERS: Internal Medicine Interventional Cardiology
DX: E11.9 Type 2 diabetes mellitus without complications (principal); R07.89 Other chest pain